=== PATIENT | male | born 1945 | race Caucasian/White ===

== ENCOUNTER 2016-08-10 14:10 | Inpatient (IN) | payer MEDICARE, OTHER ==
[~2016-08-10] VITALS: Ht 177.8 cm; Wt 102.4 kg
--- NOTE | 2016-08-16 10:19 | HP ---
ADMIT: 08/10/2016 RM/LOC: 425 [facility] MR#: [id number] 2620 [facility] [address] [place], [place] [address] [address] [place] [id number] History and Physical SEX: M AGE: 71 : 1945 DATE OF SERVICE: CHIEF COMPLAINT: Fever, weakness, and altered mental status. CLINICAL HISTORY: Mr. Londono is a disabled 71-year-old, white male, who lives at [facility] in [place]. 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 The patient has been a resident at [facility] since February of 2012 and has done well in that placement. The staff at [facility] over the last 3 to 4 days have noted that he just did not seem himself. He was much quieter than usual. He seemed lethargic and slow and had a significant decrease in appetite. He just was not acting his usual self. He also was having some increased periods of confusion. He then started running a low-grade fever on 08/09/2016 and seemed once again to be much weaker than usual. They had planned to contact the office on 08/10/2016, to see if we could get him into see him; however, over night, he spiked a temperature and again late on the morning of 08/10/2016, he spiked fever again to 102 at his assisted living facility. In conjunction with the fever, he is very weak and felt lightheaded and dizzy like he was going to pass out. He was nauseated and much more confused than usual. They contacted our office and with a high fever and other symptoms, I instructed them to bring him to the emergency room for evaluation. He was transported by ambulance from [facility] to the ER where he was evaluated by Dr. Luna. He was initially noted on arrival to have an elevated temp, although he had been given Tylenol at the half-way and his temp was down to 100.7. He was, however, noted to be hypotensive with blood pressures running 80 and 90 systolic that. For that reason, he was given a fluid bolus and in view of the fever, altered mental status and hypotension, they instituted the sepsis workup in the ER, although they were unable to find any focus of infection. It was noted in the ER, his white count was 9800. He was thrombocytopenic, but he has chronic thrombocytopenia related to his alcoholic liver disease. Procalcitonin and lactic acid were both normal. His urinalysis was clear. His liver function tests were abnormal that was felt to be related to his chronic liver disease. Cardiac workup was negative. He initially responded to the fluid bolus in the ER, but given his altered mental status and possible sepsis, it was felt best to admit to the ICU and institute aggressive IV antibiotic therapy. The patient himself is not a real reliable historian, but he is able to answer most questions appropriately. He notes other than for feeling chilled, weak, and nauseated, he is having no other symptoms. There has been no recent cough or respiratory congestion. He has had no recent change in bowel habitus or signs of gastroenteritis. His fever was felt to be of unknown origin following his evaluation in the ER. He is admitted from the ER to ICU for continued treatment of suspected sepsis. PAST MEDICAL HISTORY: The patient is not a real good historian. His memory for dates is quite poor, this ties in with his past alcoholic encephalopathy. As noted, he has been at the [facility] since February of 2012. Prior to that, he had been at the [facility] for ADMIT: 08/10/2016 RM/LOC: 425 [facility] MR#: [id number] [address] [place] [id number] [address] [place] [id number] History and Physical SEX: M AGE: 71 : 1945 1 year. He had been hospitalized at [facility] in 2009 and 2010 with significant complications related to his chronic alcoholism and alcoholic liver disease as well as his alcoholic encephalopathy. He had recurring bouts of C. difficile enteritis. Ultimately, they were able to get him cleared of the C difficile, and given his significant cognitive impairment, it was felt that he needed half-way placement, and in 2009, he was admitted to the [facility]. Since his admission to [facility] in 2009, he has had only one hospitalization. The patient was evaluated because of marked jaundice and was found to have obstructive jaundice related to his full gallbladder disease. The patient has chronic liver disease due to alcoholic cirrhosis, but had obstructive jaundice due to common duct stone. He was referred to the [facility] because of his portal hypertension and significant risk of bleeding associated with any type of laparoscopic procedure. The patient ultimately underwent cholecystotomy and removal of his stones, drainage of his gallbladder, and ERCP removal of his common duct stone. He had this performed in August of 2013 and has had no further problems with his gallbladder or recurrent jaundice since that time. His chronic medical problems are noted to include. 1. Alcohol use disorder, severe in full sustained remission for over 7 years because of his half-way and [facility] confinement. 2. Alcoholic encephalopathy. 3. Alcoholic liver disease with cirrhosis. 4. Portal hypertension. 5. Thrombocytopenia. 6. Chronic obstructive pulmonary disease. 7. Seizure disorder. 8. Chronic gastritis. 9. Status post craniotomy for benign right frontal lobe brain tumor other than for his craniotomy for that right frontal lobe tumor, which was over 20 years ago. 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 His only other major surgical procedure was that cholecystotomy and gallbladder drainage and removal of common duct stone in August of 2013. CURRENT MEDICATIONS: Include: 1. Advair 250/50 one puff b.i.d. 2. Lasix 80 mg q.a.m. 3. DuoNeb via twin jet nebulizer q.3 to 4 hours p.r.n. 4. Lortab 5/325 one every 4 hours p.r.n. pain. 5. Keppra 500 mg b.i.d. for seizure prophylaxis. 6. Imodium 2 mg p.r.n. diarrhea. 7. Maalox 30 mL p.r.n. indigestion. 8. Micro-K 10 mEq twice daily. 9. Milk of magnesia 30 mL p.r.n. constipation. 10.Pepcid 20 mg twice a day. 11.Robitussin DM 10/200 two teaspoons every 4 hours p.r.n. cough. 12.Surfak 240 mg b.i.d. p.r.n. constipation. 13.Tylenol 650 mg every 4 to 6 hours for minor discomfort. ADMIT: 08/10/2016 RM/LOC: 425 [facility] MR#: [id number] [address] [address] [address] [place] [address] History and Physical SEX: M AGE: 71 : 1945 14.Xanax 0.5 mg 1 every 6 hours p.r.n. anxiety. ALLERGIES: NO KNOWN ALLERGIES. SOCIAL HISTORY: The patient is disabled. He has been residing at [facility] for the last 4-1/2 years. The patient is a former smoker. He has no history of illicit drug use, but does have past history of alcohol use disorder or chronic alcoholism. FAMILY HISTORY: There is a strong history of heart disease in his family as well as hypertension. REVIEW OF SYSTEMS: CONSTITUTIONAL: The patient notes he has not felt well over the last 3 to 4 days. He had a low-grade fever until yesterday when he started spiking higher fever. He denies chills, denies night sweats. HEENT: Denies any recent vision or hearing change. No upper respiratory congestion. He denies nasal discharge, sinus drainage, or sinus congestion. He denies sore throat. PULMONARY: He has usual degree of shortness of breath with activity. No recent cough or sputum production. CARDIAC: No chest pain. No palpitations. Does complain of lightheadedness and dizziness whenever he stands up for the last couple of days. GASTROINTESTINAL: Appetite has been decreased. He has had some nausea, but no vomiting, no diarrhea, no melena, or hematochezia. No change in bowel habitus. GENITOURINARY: Denies dysuria or frequency. No urgency. Does have history of BPH. ENDOCRINE: No history of diabetes. No prior history of thyroid problems. MUSCULOSKELETAL: Some generalized mild arthritic complaints. No recent falls or injuries. NEUROLOGIC: No new focal symptoms. The patient is ambulatory. He denies any unusual headaches. HEMATOLOGIC: No previous history of clotting disorders or unusual bleeding. Does have history of chronic thrombocytopenia related to his alcoholic liver disease and portal hypertension. PHYSICAL EXAMINATION: VITAL SIGNS: At this time, his temp upon admission to the ICU is 97.5, had been 100.7 in the ER, pulse is 70, respirations 20, blood pressure 110/60 after fluid bolus in the ER, O2 saturation 99%, current weight is 210 pounds, which is his normal usual weight over the last several years. GENERAL: The patient is a 71-year-old male, who appears significantly older than his stated age. He is in no acute distress. Resting comfortably in bed; however, when we sat him up on the side of the bed, he does get orthostatic blood pressures are only running 70 to 80 systolic at this time. Initially when he came up from the ER, blood pressures were more stable, but blood pressures are continuing to drop again. HEENT: His ENT exam reveals his ears to be clear. Pupils are equal and reactive. No scleral icterus. Conjunctivae are noninflamed. Nose and throat ADMIT: 08/10/2016 RM/LOC: 425 [facility] MR#: [id number] 2620 [facility] [address] [place] [id number] BELLE L[address]ON[address] [facility] [address] [place] [phone] History and Physical SEX: M AGE: 71 : 1945 are noninflamed. His oral mucous membranes are little dry. Throat is noninflamed. NECK: Supple. No nuchal rigidity. No neck masses. Should note on exam of his head, he does have a defect in his skull over the right frontal region from his previous craniotomy. LUNGS: Today are diminished, but clear. No wheezes. No dullness to percussion. HEART: Regular rhythm. Sinus bradycardia at this time. Initial heart rate was 70, but while during my exam, his heart rates drop into the 40s. ABDOMEN: Today is protuberant. He does have some chronic acidic fluid. Bowel sounds are normoactive. He has no significant tenderness to palpation. I cannot appreciate any abdominal masses. GENITALIA: Normal male. No CVA or suprapubic tenderness. RECTAL: Not performed at this time. EXTREMITIES: Today are noted to have trace of pedal and ankle edema. No clubbing or cyanosis. No calf tenderness. He moves all extremities well. NEUROLOGIC: I see no focal deficit. He has some mild neurocognitive impairment and some mild short-term memory impairment, but actually he seems to be at his baseline cognitive status at the time of my exam. INTEGUMENT: No rashes. No areas of skin breakdown. No signs of cellulitis. ASSESSMENT AT THE TIME OF ADMISSION: 1. Sepsis. 2. Fever of unknown origin. 3. Hypotension. 4. Chronic obstructive pulmonary disease. 5. Chronic alcoholic encephalopathy. 6. 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 7. Alcoholic liver disease. 8. Chronic hepatic insufficiency. 9. Portal hypertension with ascites. 10.Thrombocytopenia. 11.Alcohol use disorder, in full sustained remission. 12.Chronic mild neurocognitive impairment. PLAN: Plan is to admit the patient to the ICU for close monitoring of his hemodynamic status. We will initiate treatment for suspected sepsis with IV Zosyn and IV vancomycin. Blood and urine cultures have been obtained. We will also go ahead and do a respiratory viral panel and proceed with CT of the abdomen and pelvis to rule out any occult infections in the abdomen. Ziggy Yun MD/ cecil JOB #: [id number] CC: Ziggy Yun, Attending Physician ADMIT: 08/10/2016 RM/LOC: 425 [facility] MR#: [id number] [address] [address] [address] [place] [address] History and Physical SEX: M AGE: 71 : 1945 Ziggy Yun, Family Physician
[2016-08-16] MEDS ORDERED: DUONEB DPS3 ML IH ×2 (11:51→11:56)
[2016-08-16] MEDS ORDERED: ADVAIR DIS1 PUFF/DO1 IH (11:51)
[2016-08-16] MEDS ORDERED: LASIX DPS80 MG PO (11:52)
[2016-08-16] MEDS ORDERED: HYDROCODON-ACE1 EAC4 PO (11:52)
[2016-08-16] MEDS ORDERED: KEPPRA DPS500 MG PO (11:52)
[2016-08-16] MEDS ORDERED: IMODIUM DPS2 MG PO (11:53)
[2016-08-16] MEDS ORDERED: MICRO-K DPS10 MEQ PO (11:54)
[2016-08-16] MEDS ORDERED: MAALOX DPS30 ML PO (11:54)
[2016-08-16] MEDS ORDERED: PEPCID DPS20 MG PO (11:54)
[2016-08-16] MEDS ORDERED: MILK OF MAGNESI10 ML PO (11:54)
[2016-08-16] MEDS ORDERED: SURFAK DPS240 MG PO (11:55)
[2016-08-16] MEDS ORDERED: XANAX DPS0.5 MG PO (11:55)
[2016-08-16] MEDS ORDERED: ROBITUSSIN200 MG/10 PO (11:55)
[2016-08-16] MEDS ORDERED: TYLENOL DPS325 MG PO (11:55)
--- NOTE | 2016-08-16 16:10 | ER ---
ADMIT: 08/10/2016 RM/LOC: 312 [facility] MR#: [id number] 2620 [facility] [address] [place], [place] [address] [address] [facility] [place] [address] Emergency Room Report SEX: M AGE: 71 : 1945 DATE: 08/10/2016 ADDENDUM: This is a 71-year-old white male coming in with confusion, but he does have a brain mass. He also has chronic hepatic failure and encephalopathy. At this time, he had come in. His pressure had dropped below a systolic of 90, so he was in his 80s. Fluid started. Sepsis protocol followed. Zosyn given. His CBC and chemistry are essentially normal. Lactate is normal. Chest x-ray, nothing acute. At this time, I spoke with Dr. Yun, he will need to admit him. Patient's status overall is a DNR. CONDITION ON DISCHARGE: Serious, but stable. Gunner Luna MD/ modl JOB #: [id number] CC: Ziggy Yun MD, Attending Physician Ziggy Yun MD, Family Physician
--- NOTE | 2016-09-13 15:56 | DS ---
ADMIT: 08/10/2016 RM/LOC: 425 [facility] MR#: [id number] 2620 [facility] [address] [place], [place] [address] [address] [facility] [place] [address] General Discharge Summary SEX: M AGE: 71 : 1945 ADMISSION DATE: 08/10/2016 DISCHARGE DATE: 08/15/2016 ADMITTING DIAGNOSIS: As per history and physical. FINAL DIAGNOSES: 1. Sepsis, resolved. 2. Metabolic encephalopathy. 3. Pneumonia, resolving. 4. Acute chronic obstructive pulmonary disease exacerbation. 5. Portal hypertension. 6. Splenic artery aneurysm. 7. Alcoholic cirrhosis with ascites. 8. Thrombocytopenia. 9. Alcoholic encephalopathy. 10.Chronic gastritis. 11.Chronic neurocognitive impairment. 12.Alcohol dependence in remission. 13.Chronic obstructive pulmonary disease. 14.Seizure disorder. 15.Altered mental status, resolved. COMPLICATIONS: None. OPERATIONS: None. CLINICAL HISTORY: Mr. Londono is a disabled 71-year-old male, who resides at [facility]. 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 The patient was brought to the ER by his assisted living facility because of altered mental status as well as fever at the facility. He had a temp up to 102. He was having some increased shortness of breath and cough as well, as well as being very weak and fatigued. He was evaluated in the ER, where he was felt to have sepsis, most likely related to his pneumonia. The patient was admitted with pneumonia, sepsis, and COPD exacerbation. For further details of his clinical history as well as past medical history and pertinent findings on physical exam, please see the dictated history and physical. LABORATORY AND X-RAY SUMMARY FROM THIS ADMISSION: Laboratory included a CBC on admission, which showed a white count of 9800, hemoglobin of 16.1, hematocrit 46.7, and platelets were low at 77,000. CBCs were done on essentially at daily basis during the hospitalization. His white count dropped to 7000 on his second hospital day. He continued to have a reduction in his white count, and at discharge, white count was 3600. His hemoglobin was 14 at discharge, hematocrit 41.6, platelets were low at 73,000. Platelets ranged from 53,000 to 78,000 during this hospital stay. INR was normal at 1.08, pro-time 11.3, PTT was normal at 29.4. Urinalysis on admission showed 2+ blood, but negative leukocyte esterase, negative nitrites. No significant ADMIT: 08/10/2016 RM/LOC: 425 [facility] MR#: [id number] [address] [address] [address] [place] [address] General Discharge Summary SEX: M AGE: 71 : 1945 evidence of infection. Chemistry studies were monitored daily because of his sepsis and fluid resuscitation as well as his chronic hepatic insufficiency. On admission, his sodium was 142, his potassium was 3.3, BUN was 17 with a creatinine of 1.3, blood sugar 115. LFTs revealed his AST and ALT to be elevated. Albumin is low at 3.0. Lactic acid on admission was 1.8. Cardiac enzymes on admission were normal. His serum ammonia was high at 43. Procalcitonin was normal at 0.15. Subsequent procalcitonin remains normal. At discharge, his sodium was 142, potassium 4.2, BUN was 12, creatinine was 1.0. Blood sugars throughout the hospitalization were normal. His Keppra level was normal at 11. Blood cultures drawn on admission showed no growth. Urine culture showed no growth. Respiratory viral panel was negative for all viral pathogens. Blood type is noted to be AB positive. CT of his head done in the ER showed postoperative changes from his previous right frontal craniotomy with encephalomalacia of the right frontal lobe. No acute findings were noted. CT of his abdomen and pelvis were performed. This showed a large splenic artery aneurysm, measuring 5.5 cm x 8 cm. Changes of portal hypertension. There was some changes of chronic gastritis and thickening of the gastric portion of the stomach. He was noted to have a patchy right lower lobe infiltrate, had cirrhotic changes of his liver with splenomegaly. He was also noted to have a small hiatal hernia. The most significant finding on his CT of his abdomen was at large splenic artery aneurysm. Subsequent chest x- ray showed changes of COPD. The acute infiltrate was not readily identifiable on his chest x-ray, but was seen on CT. Subsequent chest x-ray showed continued changes of COPD. He did have some bibasilar ground-glass opacities noted on his second hospital day. EKG showed sinus rhythm with nonspecific ST- T wave changes. Serial EKG showed no change. HOSPITAL COURSE: The patient was admitted with altered mental status, which was felt to be related to his fever and sepsis. He was admitted to the ICU and treated aggressively for his pneumonia and sepsis. He was given fluids per the sepsis protocol. He was started on IV Zosyn and IV vancomycin for his pneumonia. He was given frequent nebulizer treatments. We did have PT and OT see the patient to work with his balance, gait, and strengthening. His hospital course was one of slow gradual improvement as his pneumonia responded to aggressive antibiotic therapy. After 2 days, he was transferred to the telemetry and continued on aggressive treatment for his pneumonia. He ultimately was dismissed back to his assisted living facility in [place] on his 6th hospital day, 08/15/2016. DISCHARGE MEDICATIONS: The patient was dismissed on the following medications: 1. Keppra 500 mg b.i.d. 2. Micro-K 10 mEq b.i.d. 3. Pepcid 20 mg b.i.d. 4. Advair 250/50 one puff b.i.d. 5. DuoNeb via twin jet nebulizer q.i.d. 6. Maalox 30 mL p.r.n. indigestion. 7. Surfak 240 mg b.i.d. p.r.n. constipation. ADMIT: 08/10/2016 RM/LOC: 425 [facility] MR#: [id number] 2620 [facility] [address] [place], [place] [address] [address] [place] [address] General Discharge Summary SEX: M AGE: 71 : 1945 8. Milk of magnesia 30 mL p.r.n. 9. Robitussin DM 10 mL every 4 hours p.r.n. cough. 10.Tylenol p.r.n. minor discomfort. 11.Pepcid 20 mg b.i.d. 12.Xanax 0.5 mg q.6 hours p.r.n. anxiety. 13.Imodium 2 mg p.r.n. diarrhea. 14.Lortab 5/325, one every 4 hours p.r.n. severe pain. 15.Lasix 80 mg daily. 16.Augmentin 875 mg b.i.d. for 5 days. He is to follow up in our office in approximately 5-7 days with followup chest x-ray at that time. CONDITION AT DISCHARGE: Stable. PROGNOSIS: Somewhat guarded in view of his complex medical problems, particularly his chronic hepatic insufficiency. The patient does have a large splenic artery aneurysm and has been referred to [facility] Department for consultation regarding his portal hypertension and treatment of that splenic artery aneurysm. Arrangements will be made for appointment at [facility]. Ziggy Yun MD/ cecil JOB #: [id number] CC: Ziggy Yun MD, Attending Physician Ziggy Yun MD, Family Physician
== END 2016-08-15 16:30 | disposition home or self-care (01) | DRG 871 ==
LOC: ER 14:10 → 4PCU 16:38 → 3ICU 16:38 → 4PCU 08-11 21:47
PROVIDERS: ADMIT Family Medicine
DX: A41.9 Sepsis, unspecified organism (principal); R65.21 Severe sepsis with septic shock; G93.41 Metabolic encephalopathy; J18.9 Pneumonia, unspecified organism; R18.8 Other ascites; K76.6 Portal hypertension; J44.0 Chronic obstructive pulmonary disease with (acute) lower respiratory infection; D69.59 Other secondary thrombocytopenia; D69.6 Thrombocytopenia, unspecified; J44.1 Chronic obstructive pulmonary disease with (acute) exacerbation; G31.2 Degeneration of nervous system due to alcohol; I72.8 Aneurysm of other specified arteries; R00.1 Bradycardia, unspecified; R50.9 Fever, unspecified; G31.84 Mild cognitive impairment of uncertain or unknown etiology; K70.30 Alcoholic cirrhosis of liver without ascites; F10.21 Alcohol dependence, in remission; G40.909 Epilepsy, unspecified, not intractable, without status epilepticus; K29.50 Unspecified chronic gastritis without bleeding; Z87.820 Personal history of traumatic brain injury; Z66 Do not resuscitate; Z87.891 Personal history of nicotine dependence